=== PATIENT | female | born 1980 | race Caucasian/White ===

== ENCOUNTER → 2018-04-30 | Outpatient (CLI) | payer OTHER ==
--- NOTE | 2018-04-30 13:07 | CONS ---
CONSULTATION DATE OF SERVICE: 04/30/2018 This is a 37-year-old who had [facility] for significant excessive daytime sleepiness, snoring, and awakenings with headaches. HISTORY OF PRESENT ILLNESS/SLEEP-WAKE EVALUATION: Patient's usual sleep schedule on weekdays from around 11:30 p.m. until 7:59 am, on weekends from around 11:30 until 8 a.m. Sometimes she has problems with falling asleep, although no TV in bedroom. She sleeps on the belly position with snoring and awakenings from sleep up to 3 times with nocturia. No history of hypnagogic hallucinations, but patient described episodes of awakenings from sleep, but she cannot move possibly sleep off paralysis. In the morning patient wakes up tired, falling asleep during the day. [place] Sleepiness Scale significantly increased to 15. She may take naps 2 times a day. No history of hypnagogic hallucinations, or cataplexy. She is seeing dreams during naps. PAST MEDICAL HISTORY: Positive for asthma, seasonal allergy, eczema, sinus problems, presently sinus infection, on treatment with antibiotics. History of nasal polyps. PAST SURGICAL HISTORY: Status post D and C. MEDICATIONS: Symbicort, albuterol, Zyrtec, ibuprofen, Z-Efrain, steroid cream for eczema. SOCIAL HISTORY: Positive for smoking for 2 years, quit 8 years ago. Alcohol consumption none. FAMILY HISTORY: Asthma, sinus problems. REVIEW OF SYSTEMS: Multiple awakenings from sleep, significant excessive daytime sleepiness, episodes of headaches starting during the sleep or in the morning. During physical exam, lady without distress BP 131/71, HR 62, RR 14, height 5 foot, 6.5 inches, weight 294 pounds. Body mass index 46.7, temperature 97.0, oxygen saturation at room air 99%. OROPHARYNX: Low position of soft palate, Mallampati 3-4. Significant restriction of nasal breathing bilaterally. Neck 15 inches in circumference. ABDOMEN: Obese. SKIN: Some areas of eczema on the hands, and behind the knees. IMPRESSION: 1. Snoring, multiple awakenings from sleep with nocturia and clinching tears. 2. Extremely low position of soft palate, restriction of nasal breathing, obstructive sleep apnea-hypopnea syndrome. 3. Significant excessive daytime sleepiness. [place] Sleepiness Scale is 15. Positive history of sleep paralysis. Patient takes naps 2 times a day with seeing dreams during naps. Differential diagnosis should include also hypersomnia including narcolepsy without cataplexy. 4. Obesity, body mass index 46.7. 5. Asthma. 6. History of sinusitis, nasal polyps, restriction of nasal breathing. 7. Seasonal allergies. 8. Eczema. 9. Status post D and C. PLAN: 1. Polysomnography for evaluation of patient's breathing during sleep. 2. CPAP/BiPAP titration if sleep study confirms obstructive sleep apnea-hypopnea syndrome. 3. Preferable position during sleep on the side. 4. No driving if patient feels any sleepiness. 5. I will see patient for follow up visit to explain results of testing and following plan. 6. If sleep studies will be negative for obstructive sleep-apnea syndrome, we will consider multiple sleep latency test for symptoms of excessive daytime sleepiness. Thank you very much for referring this patient for consultation. Sincerely, Jose C Gillis MD, PhD, FAASM Diplomat of [employer] [place] [employer] [facility] [place] MMODL / GLYNNN: [id number] /
== END | disposition home or self-care (01) ==
LOC: SLEEP 10:10
PROVIDERS: ATTEND Internal Medicine
DX: G47.33 Obstructive sleep apnea (adult) (pediatric) (principal); E66.9 Obesity, unspecified; J45.909 Unspecified asthma, uncomplicated; L30.9 Dermatitis, unspecified; Z68.42 Body mass index [BMI] 45.0-49.9, adult; Z87.891 Personal history of nicotine dependence; Z87.09 Personal history of other diseases of the respiratory system; Z98.890 Other specified postprocedural states; Z79.51 Long term (current) use of inhaled steroids; Z79.899 Other long term (current) drug therapy
CPT/HCPCS: 99211